=== PATIENT | male | born 1965 | race Caucasian/White ===

== ENCOUNTER 2016-08-31 10:55 | Inpatient (IN) | payer OTHER ==
[2016-08-31 11:43] LABS: % IMMATURE GRANULYOCYTES 0.3 % (0.0-1.1); ABSOLUTE IMMATURE GRANULOCYTES 0.03 10^3/uL (0.00-0.10); ADD DIFF? NO; ADD MORPH? NO; ADD SCAN? NO; ATYPICAL LYMPHOCYTE FLAG 0 (0-99); FRAGMENT RBC FLAG 0 (0-99); HEMATOCRIT 42.8 % (40.0-51.0); HEMOGLOBIN 14.8 g/dL (13.7-17.5); LEFT SHIFT FLG 0 (0-99); LIPEMIA HEMOLYSIS FLAG 90 (0-99); MEAN CELL HEMOGLOBIN 30.9 pg (27.9-34.1); MEAN CELL HEMOGLOBIN CONCENTR. 34.6 g/dL (32.4-36.7); MEAN CELL VOLUME 89.4 fL (81.5-99.8); MEAN PLATELET VOLUME 9.9 fL (8.7-11.7); PLATELET CLUMPS FLAG 0 (0-99); PLATELET COUNT 149 10^3/uL (150-400); RED BLOOD CELL COUNT 4.79 10^6/uL (4.40-6.38); RED CELL DISTRIBUTION WIDTH 13.5 % (11.5-15.2)
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
[2016-08-31 12:02] LABS: ANION GAP 10 mEq/L (8-16); CALCIUM 9.2 mg/dL (8.5-10.4); CARBON DIOXIDE 26 mEq/l (22-31); CHLORIDE 105 mEq/L (97-110); CREATININE 0.8 mg/dL (0.7-1.3); ETHANOL SERUM < 10 mg/dL (0-10); GLOMERULAR FILTRATION RATE > 60; GLUCOSE 86 mg/dL (70-100); POTASSIUM 3.6 mEq/L (3.5-5.2); SALICYLATE < 1.0 mg/dL (2.0-20.0); SODIUM 141 mEq/L (134-144)
[2016-08-31] MEDS ORDERED: LORazepam 1 MG TAB ONE (19:20)
[2016-08-31] MEDS ORDERED: LORazepam 1 MG TAB PO ONE (19:24)
[2016-08-31] MEDS ORDERED: ZIPRASIDONE HCL 40 MG CAP PO ONE (22:32)
[2016-09-01 00:10] LABS: INR 0.93 (0.83-1.16); PROTIME(PATIENT) 12.4 SEC (12.0-15.0)
[2016-09-01 00:11] LABS: APTT 23.6 SEC (23.0-38.0)
--- NOTE | 2016-09-01 00:12 | US ---
Ultrasound and Venous Duplex Doppler Study of Right Lower Extremity History: Right leg pain, patient is currently on blood thinners and has an IVC filter, history of DVT Comparison: none Technique: High frequency transducer was used for imaging and Doppler study of the veins of the lowe r extremity. Pulsed Doppler and color Doppler were utilized, along with various maneuvers to assess flow in the veins. Findings: The deep veins of the lower extremity are thrombosed between the upper thigh and the calf . The thrombus is echogenic suggesting that it is chronic. There is early recanalization of some of the thrombus. The common femoral vein and profunda femoral vein remain patent. There is thrombosis o f the greater saphenous vein. No Crawford's cyst is identified. A prominent right inguinal lymph node hi s present measuring 2.2 x 2.3 x 0.7 cm. Impression: No obvious evidence of acute DVT superimposed upon known chronic DVT. Results called to Dr. Templeton at 12:10 am.
[2016-09-01] MEDS ORDERED: ACETAMINOPHEN 325 MG TAB PO PRN (14:37)
[2016-09-01] MEDS ORDERED: MAG HYDROX/AL HYDROX/SIMETH 30 ML UDCUP PO PRN (14:37)
[2016-09-01] MEDS ORDERED: MAGNESIUM HYDROXIDE 30 ML UDCUP PO PRN (14:37)
[2016-09-01] MEDS ORDERED: CYANO/VITAMIN B12 100 MCG TAB PO PRN (14:45)
[2016-09-01] MEDS: PANTOPRAZOLE SODIUM 40 MG TAB PO SCH (15:04)
[2016-09-01] MEDS: ENOXAPARIN 150 MG/ML SYR SC SCH (15:04)
[2016-09-01] MEDS: LOSARTAN POTASSIUM 50 MG TAB PO SCH (15:05)
[2016-09-01] MEDS: LORazepam 0.5 MG TAB PO PRN (16:38)
[2016-09-01] MEDS: ZIPRASIDONE HCL 40 MG CAP PO SCH (17:09)
[2016-09-01] MEDS: diphenhydrAMINE 25 MG CAP PO PRN (20:29)
[2016-09-01] MEDS: ZIPRASIDONE HCL 20 MG CAP PO PRN (20:29)
--- NOTE | 2016-09-01 20:39 | SOAPPROG ---
[id number] OD on anti-HTN meds in context of recent move to [place] and having difficulty accessing resoures, as well as running out of resources. Plan: continue home meds add Geodon 20mg bid prn to scheduled dose, [id number] qhs to qpm with meal add Benadryl prn insomnia VS q shift, prn ativan; monitor for any bzd w/d sxs since reports self taper off xanax safety precautions 09/01/16 17:22 available records reviewed and patient interviewed today. Reports still with AH/SI but feels he can be safe in hospital would like to continue on his meds, agrees to additions as above noted. admission dictation to follow Objective: Vital Signs Temp Pulse Resp BP Pulse Ox 36.8 C 55 L 13 182/100 H 96 09/01/16 09:36 09/01/16 20:32 09/01/16 09:36 09/01/16 20:32 09/01/16 09:36 PT 12.4 SEC (12.0-15.0) 08/31/16 23:50 INR 0.93 (0.83-1.16) 08/31/16 23:50 - Pending Discharge Pending Discharge Within 24 Hours: No Pending Discharge Within 48 Hours: No ICD10 Worksheet Patient Problems: Problems Problem Status Diagnosed Severe major depression Acute
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
[2016-09-02] MEDS: LOSARTAN POTASSIUM 50 MG TAB PO SCH (08:17)
[2016-09-02] MEDS: VENLAFAXINE XR 150 MG CAP PO SCH (08:17)
[2016-09-02] MEDS: LORazepam 0.5 MG TAB PO PRN ×3 (08:18→20:24)
[2016-09-02] MEDS: PANTOPRAZOLE SODIUM 40 MG TAB PO SCH (08:18)
[2016-09-02] MEDS: ENOXAPARIN 150 MG/ML SYR SC SCH (08:19)
--- NOTE | 2016-09-02 12:44 | SOAPPROG ---
SOAP Progress Note Assessment/Plan: Assessment: 50yo with SZA d/o with extensive psychiatric hx admitted with SI/AH after travel to [place] and associated stressors, also with recent med changes Plan: continue meds Effexor, Geodon incr Benadryl avail at HS for sleep pt does not want AM Geodon b/c reports too sedating. does like it at HS. cont SP-1 hospitalist to f/u with BP voluntary 09/02/16 15:35 slept 9hr. pt reports this sleep was interrupted and not well, however, and maintains that historically he feels much better once sleeping well. Additional Geodon 20mg at HS helped some. Did use Ativan 1mg prn this AM. Does still report AH which he "ignores". Does report SI 05/06 and feels if he were not in hospital, he would OD. Feels he can be safe in hospital. BP continues elevated. No tremor. Was restarted on BP meds. Objective: Vital Signs Temp Pulse Resp BP Pulse Ox 37.0 C 87 16 160/88 H 95 09/02/16 06:00 09/02/16 09:11 09/02/16 09:11 09/02/16 09:11 09/02/16 09:11 PT 12.4 SEC (12.0-15.0) 08/31/16 23:50 INR 0.93 (0.83-1.16) 08/31/16 23:50 Selected Entries 09/01/16 09/01/16 09/01/16 15:05 20:28 20:32 Heart Rate 55 L Respiratory Rate O2 Sat (%) Temperature (C) Blood Pressure 187/114 H 182/100 H 182/100 H Mean Arterial 127 H Pressure (MAP) O2 Delivery Mode 09/02/16 09/02/16 06:00 09:11 Heart Rate 62 87 Respiratory 12 16 Rate O2 Sat (%) 95 95 Temperature (C) 37.0 C Blood Pressure 153/87 H 160/88 H Mean Arterial 112 H Pressure (MAP) O2 Delivery Room Air Mode - Time Spent With Patient Time Spent With Patient: 20 min - Pending Discharge Pending Discharge Within 24 Hours: No Pending Discharge Within 48 Hours: No ICD10 Worksheet Patient Problems: Problems Problem Status Diagnosed Severe major depression Acute
[2016-09-02] MEDS: ZIPRASIDONE HCL 40 MG CAP PO SCH (17:18)
[2016-09-02] MEDS: ZIPRASIDONE HCL 20 MG CAP PO PRN (20:25)
[2016-09-02] MEDS: diphenhydrAMINE 25 MG CAP PO PRN (20:25)
[2016-09-03] MEDS: VENLAFAXINE XR 150 MG CAP PO SCH (07:56)
[2016-09-03] MEDS: LOSARTAN POTASSIUM 50 MG TAB PO SCH (07:56)
[2016-09-03] MEDS: PANTOPRAZOLE SODIUM 40 MG TAB PO SCH (07:56)
[2016-09-03] MEDS: ENOXAPARIN 150 MG/ML SYR SC SCH (07:57)
[2016-09-03] MEDS: LORazepam 0.5 MG TAB PO PRN ×3 (08:41→20:50)
[2016-09-03] MEDS: NICOTINE POLACRILEX 2 MG GUM B PRN ×2 (10:55→14:49)
[2016-09-03] MEDS: ZIPRASIDONE HCL 40 MG CAP PO SCH ×2 (17:03→20:51)
[2016-09-03] MEDS: diphenhydrAMINE 25 MG CAP PO PRN (20:50)
[2016-09-04] MEDS: VENLAFAXINE XR 150 MG CAP PO SCH (08:17)
[2016-09-04] MEDS: LOSARTAN POTASSIUM 50 MG TAB PO SCH (08:17)
[2016-09-04] MEDS: ENOXAPARIN 150 MG/ML SYR SC SCH (08:18)
[2016-09-04] MEDS: PANTOPRAZOLE SODIUM 40 MG TAB PO SCH (08:18)
[2016-09-04] MEDS: LORazepam 0.5 MG TAB PO PRN ×3 (08:30→20:54)
--- NOTE | 2016-09-04 10:47 | SOAPPROG ---
SOAP Progress Note Assessment/Plan: Assessment: Pt is 50 y/o C male with a long hx of Schizoaffective D/O who came to the ER after leaving [place], [place] where he had been treated by Dr Whiteside for many years. He reports continued SI due to family problems especially regarding his sister and pt feels his sister wants him so she can get his inheritance. He receives SSI and SSDI since age 25 as well as medicare. Plan:con't Geodon at increased dose Increase Effexor by 37.5 mg QD for mood pt is vol. 09/04/16 10:44 Subjective: "Suicidal and depressed." Objective: Vital Signs Temp Pulse Resp BP Pulse Ox 36.6 C 59 L 16 183/93 H 94 09/04/16 05:42 09/04/16 05:42 09/04/16 05:42 09/04/16 05:42 09/04/16 05:42 PT 12.4 SEC (12.0-15.0) 08/31/16 23:50 INR 0.93 (0.83-1.16) 08/31/16 23:50 Pt is A+O x4 mood-"depressed and suicidal" affect-appr + SI but contracts for safety no HI decreased AH no VH thoughts-negative, but logical no formal delusions sleep/appetite-improving memory-intact I/J-fair - Time Spent With Patient Time Spent With Patient: 25' - Pending Discharge Pending Discharge Within 24 Hours: No Pending Discharge Within 48 Hours: No ICD10 Worksheet Patient Problems: Problems Problem Status Diagnosed Severe major depression Acute
[2016-09-04] MEDS: VENLAFAXINE XR 37.5 MG CAP PO SCH (10:55)
[2016-09-04] MEDS: NICOTINE POLACRILEX 2 MG GUM B PRN ×5 (11:19→18:57)
[2016-09-04] MEDS: ZIPRASIDONE HCL 40 MG CAP PO SCH ×2 (17:04→20:46)
[2016-09-04] MEDS: diphenhydrAMINE 25 MG CAP PO PRN (20:52)
[2016-09-05] MEDS: LOSARTAN POTASSIUM 50 MG TAB PO SCH (08:41)
[2016-09-05] MEDS: ENOXAPARIN 150 MG/ML SYR SC SCH (08:41)
[2016-09-05] MEDS: PANTOPRAZOLE SODIUM 40 MG TAB PO SCH (08:41)
[2016-09-05] MEDS: VENLAFAXINE XR 150 MG CAP PO SCH (08:42)
[2016-09-05] MEDS: VENLAFAXINE XR 37.5 MG CAP PO SCH (08:42)
[2016-09-05] MEDS: LORazepam 0.5 MG TAB PO PRN ×3 (08:44→20:54)
--- NOTE | 2016-09-05 10:37 | SOAPPROG ---
SOAP Progress Note Assessment/Plan: Assessment: Pt is 50 y/o C male with a long hx of Schizoaffective D/O who came to the ER after leaving [place], [place] where he had been treated by Dr Whiteside for many years. He reports continued SI due to family problems especially regarding his sister and pt feels his sister wants him so she can get his inheritance. He receives SSI and SSDI since age 25 as well as medicare. Plan:con't Geodon at increased dose Effexor increased by 37.5 mg QD for mood 09/04/16 pt is vol. will increase Clonidine to 0.2 mg as systolic running up to 180 will give Risperdal consta 50mg IM as did well on the past as when on it had no paranoia, had mood stabilization, no AH 09/05/16 10:28 Subjective: "Terrible-when I was on Consta I was kosher." Objective: Vital Signs Temp Pulse Resp BP Pulse Ox 36.9 C 86 16 185/99 H 96 09/05/16 06:00 09/05/16 06:00 09/05/16 06:00 09/05/16 08:41 09/05/16 06:00 PT 12.4 SEC (12.0-15.0) 08/31/16 23:50 INR 0.93 (0.83-1.16) 08/31/16 23:50 Pt is A+O x4 mood-"shitty" affect-appr SI 05/06 but contracts AH last night + paranoia thoughts-paranoid, but logical slept-poor conc-fair memory-intact speech-wnl I/J-good - Time Spent With Patient Time Spent With Patient: 25' - Pending Discharge Pending Discharge Within 24 Hours: No Pending Discharge Within 48 Hours: No ICD10 Worksheet Patient Problems: Problems Problem Status Diagnosed Severe major depression Acute
[2016-09-05] MEDS ORDERED: risperiDONE MICROSPHERES 50 MG/2 ML SYR IM ONE (10:40)
[2016-09-05] MEDS ORDERED: LOSARTAN POTASSIUM 50 MG TAB PO ONE (11:30)
[2016-09-05] MEDS: NICOTINE POLACRILEX 2 MG GUM B PRN ×6 (11:38→19:13)
[2016-09-05] MEDS: ZIPRASIDONE HCL 40 MG CAP PO SCH ×2 (17:19→20:54)
[2016-09-05] MEDS: diphenhydrAMINE 25 MG CAP PO PRN (20:53)
[2016-09-06] MEDS: LORazepam 0.5 MG TAB PO PRN (08:20)
[2016-09-06] MEDS: LOSARTAN POTASSIUM 50 MG TAB PO SCH (08:20)
[2016-09-06] MEDS: PANTOPRAZOLE SODIUM 40 MG TAB PO SCH (08:20)
[2016-09-06] MEDS: ENOXAPARIN 150 MG/ML SYR SC SCH (08:23)
[2016-09-06] MEDS: NICOTINE POLACRILEX 2 MG GUM B PRN ×6 (08:23→19:16)
[2016-09-06] MEDS ORDERED: ALPRAZolam 1 MG TAB PO ONE (11:06)
--- NOTE | 2016-09-06 11:11 | SOAPPROG ---
SOAP Progress Note Assessment/Plan: Assessment: Pt is 50 y/o C male with a long hx of Schizoaffective D/O who came to the ER after leaving [place], [place] where he had been treated by Dr Whiteside for many years. He reports continued SI due to family problems especially regarding his sister and pt feels his sister wants him so she can get his inheritance. He receives SSI and SSDI since age 25 as well as medicare. Plan:con't Geodon at increased dose but will begin tapering when Consta starts Effexor increased by 37.5 mg QD for mood 09/04/16 pt is vol. BP meds increased 09/05/16 as BP was high will give Risperdal consta 50mg IM as did well on the past as when on it had no paranoia, had mood stabilization, no AH will change Ativan to Xanax prn 09/06/16 11:08 Subjective: "I can't take these suicidal thoughts." Perseverates on his sister and money. Objective: Vital Signs Temp Pulse Resp BP Pulse Ox 36.4 C 68 16 185/96 H 97 09/06/16 08:33 09/06/16 08:33 09/06/16 08:33 09/06/16 08:33 09/06/16 08:33 PT 12.4 SEC (12.0-15.0) 08/31/16 23:50 INR 0.93 (0.83-1.16) 08/31/16 23:50 Pt is A+O x4 mood-anxious affect-appr 05/06 SI but contracts +AH no delusions but perseverates on sister and money sleep until 2am no HI NO VH thoughts-logical speech-wl no SOIFE I/J-fair-good - Time Spent With Patient Time Spent With Patient: 25' - Pending Discharge Pending Discharge Within 24 Hours: No Pending Discharge Within 48 Hours: No ICD10 Worksheet Patient Problems: Problems Problem Status Diagnosed Severe major depression Acute
[2016-09-06] MEDS ORDERED: risperiDONE MICROSPHERES 50 MG/2 ML SYR IM ONE (11:30)
[2016-09-06] MEDS: VENLAFAXINE HCL 75 MG TAB PO SCH ×2 (11:44→19:47)
[2016-09-06] MEDS: ALPRAZolam 1 MG TAB PO PRN ×2 (15:43→19:47)
[2016-09-06] MEDS: ZIPRASIDONE HCL 40 MG CAP PO SCH ×2 (17:18→19:47)
[2016-09-06] MEDS: diphenhydrAMINE 25 MG CAP PO PRN (20:39)
[2016-09-07] MEDS: ALPRAZolam 1 MG TAB PO PRN ×4 (08:39→20:51)
[2016-09-07] MEDS: LOSARTAN POTASSIUM 50 MG TAB PO SCH (08:39)
[2016-09-07] MEDS: PANTOPRAZOLE SODIUM 40 MG TAB PO SCH (08:40)
[2016-09-07] MEDS: VENLAFAXINE HCL 75 MG TAB PO SCH ×2 (08:40→20:48)
[2016-09-07] MEDS: NICOTINE POLACRILEX 2 MG GUM B PRN ×5 (08:41→17:25)
[2016-09-07] MEDS: ENOXAPARIN 150 MG/ML SYR SC SCH (08:43)
--- NOTE | 2016-09-07 11:35 | SOAPPROG ---
SOAP Progress Note Assessment/Plan: Assessment: Pt is 50 y/o C male with a long hx of Schizoaffective D/O who came to the ER after leaving [place], [place] where he had been treated by Dr Whiteside for many years. He reports continued SI due to family problems especially regarding his sister and pt feels his sister wants him so she can get his inheritance. He receives SSI and SSDI since age 25 as well as medicare. Plan:con't Geodon at increased dose but will begin tapering when more stable Effexor increased by 37.5 mg QD for mood 09/04/16 pt is vol. BP meds increased 09/05/16 as BP was high Risperdal consta 50mg IM given 09/06/16 as did well on the past as when on it had no paranoia, had mood stabilization, no AH will con't Xanax prn-pt feels it helps with anxiety better than Ativan 09/07/16 11:32 Subjective: "I'm not doing well-I'm looking at ways to do it." Objective: Vital Signs Temp Pulse Resp BP Pulse Ox 36.4 C 60 16 181/88 H 97 09/07/16 08:02 09/07/16 08:02 09/07/16 08:02 09/07/16 08:40 09/07/16 08:02 PT 12.4 SEC (12.0-15.0) 08/31/16 23:50 INR 0.93 (0.83-1.16) 08/31/16 23:50 Pt is A+O x4 mood-"terrible" affect-appr + SI 05/06 but contacts thoughts-paranoid, but logical some AH "Bible Verses" speech-wnl sleep-staff reports 10 hours but pt states he did not sleep appetite/energy level-wnl memory-intact no HI no SOFIE No VH I/J-fair - Time Spent With Patient Time Spent With Patient: 20' - Pending Discharge Pending Discharge Within 24 Hours: No Pending Discharge Within 48 Hours: No ICD10 Worksheet Patient Problems: Problems Problem Status Diagnosed Severe major depression Acute
[2016-09-07] MEDS: ZIPRASIDONE HCL 40 MG CAP PO SCH ×2 (17:22→20:48)
[2016-09-07] MEDS: diphenhydrAMINE 25 MG CAP PO PRN (20:54)
--- NOTE | 2016-09-08 00:56 | SOAPPROG ---
SOAP Progress Note Assessment/Plan: Assessment: 50yo with SZA d/o with extensive psychiatric hx admitted with SI/AH after travel to [place] and associated stressors, also with recent med changes Plan: continue meds Effexor, Geodon incr Benadryl avail at HS for sleep pt does not want AM Geodon b/c reports too sedating. does like it at HS. cont SP-1 hospitalist to f/u with BP voluntary 09/02/16 15:35 slept 9hr. pt reports this sleep was interrupted and not well, however, and maintains that historically he feels much better once sleeping well. Additional Geodon 20mg at HS helped some. Did use Ativan 1mg prn this AM. Does still report AH which he "ignores". Does report SI 9/10 and feels if he were not in hospital, he would OD. Feels he can be safe in hospital. BP continues elevated. No tremor. Was restarted on BP meds. LATE ENTRY: 09/03/16 15:00 pt slept 9.5 hr per nsg staff. staff report pt "decompensated" after reading suicide material provided to him on admission. On interview, reports + SI, intrusive, but able to contract that he can stay safe on unit. did report feeling like he was "sliding back", and again reports despite nsg report of 9.5hr sleep, that he didn't sleep. "I don't like the space I'm in in my head". +"some"AH, "a lot of racing thoughts and anxiety". denied med s/e. girlfriend visited today. Plan: cont Geodon 80mg qpm, incr hs to 40mg. doesn't want during day Cont Benadryl 50mg qhs prn, may take additional 25mg if still awake prn. cont prn lorazepam SP-1 precautions, vol Objective: Vital Signs Temp Pulse Resp BP Pulse Ox 36.4 C 55 L 20 162/87 H 98 09/07/16 16:00 09/07/16 16:00 09/07/16 16:00 09/07/16 16:00 09/07/16 16:00 PT 12.4 SEC (12.0-15.0) 08/31/16 23:50 INR 0.93 (0.83-1.16) 08/31/16 23:50 LATE ENTRY FOR 08/27/16: VS: BP 182/101 P62, POx99%, T 36.6 - Time Spent With Patient Time Spent With Patient: 15 min - Pending Discharge Pending Discharge Within 24 Hours: No Pending Discharge Within 48 Hours: No ICD10 Worksheet Patient Problems: Problems Problem Status Diagnosed Severe major depression Acute
[2016-09-08] MEDS: ALPRAZolam 1 MG TAB PO PRN ×4 (08:56→20:49)
[2016-09-08] MEDS: LOSARTAN POTASSIUM 50 MG TAB PO SCH (08:56)
[2016-09-08] MEDS: PANTOPRAZOLE SODIUM 40 MG TAB PO SCH (08:56)
[2016-09-08] MEDS: VENLAFAXINE HCL 75 MG TAB PO SCH ×2 (08:56→20:49)
[2016-09-08] MEDS: ENOXAPARIN 150 MG/ML SYR SC SCH (08:58)
[2016-09-08] MEDS: NICOTINE POLACRILEX 2 MG GUM B PRN ×5 (10:30→17:57)
--- NOTE | 2016-09-08 12:09 | SOAPPROG ---
SOAP Progress Note Assessment/Plan: Assessment: Pt is 50 y/o C male with a long hx of Schizoaffective D/O who came to the ER after leaving [place], [place] where he had been treated by Dr Whiteside for many years. He reports continued SI due to family problems especially regarding his sister and pt feels his sister wants him so she can get his inheritance. He receives SSI and SSDI since age 25 as well as medicare. Plan:con't Geodon at increased dose but will begin tapering when more stable Effexor increased by 37.5 mg QD for mood 09/04/16 pt is vol. BP meds increased 09/05/16 as BP was high Risperdal consta 50mg IM given 09/06/16 as did well on the past as when on it had no paranoia, had mood stabilization, no AH will con't Xanax prn-pt feels it helps with anxiety better than Ativan Pt has decided to return to [place], [place] on Sunday09/08/16 12:06 Subjective: Pt reports anxiety Objective: Vital Signs Temp Pulse Resp BP Pulse Ox 36.7 C 77 14 161/93 H 96 09/08/16 08:55 09/08/16 08:55 09/08/16 08:55 09/08/16 08:56 09/08/16 08:55 PT 12.4 SEC (12.0-15.0) 08/31/16 23:50 INR 0.93 (0.83-1.16) 08/31/16 23:50 Pt is A+O x4 mood-"not good" affect-appr +SI but contracts some AH no HI no VH thoughts-logical, some paranoia speech-rapid memory-intact conc-fair sleep-fair no SOFIE I/J-fair-good - Time Spent With Patient Time Spent With Patient: 30' - Pending Discharge Pending Discharge Within 24 Hours: No Pending Discharge Within 48 Hours: Yes Pending Discharge Date: 09/10/16 Pending Discharge Time: 11:00 ICD10 Worksheet Patient Problems: Problems Problem Status Diagnosed Severe major depression Acute
[2016-09-08] MEDS: ZIPRASIDONE HCL 40 MG CAP PO SCH ×2 (17:23→20:49)
[2016-09-08] MEDS: diphenhydrAMINE 25 MG CAP PO PRN (20:57)
[2016-09-09 08:35] VITALS: BP 145/83; PULSE 63; RESP 16; TEMP 97.8; O2SAT 99
[2016-09-09] MEDS: VENLAFAXINE HCL 75 MG TAB PO SCH (08:35)
[2016-09-09] MEDS: LOSARTAN POTASSIUM 50 MG TAB PO SCH (08:37)
[2016-09-09] MEDS: NICOTINE POLACRILEX 2 MG GUM B PRN (08:37)
[2016-09-09] MEDS: PANTOPRAZOLE SODIUM 40 MG TAB PO SCH (08:37)
[2016-09-09] MEDS: ALPRAZolam 1 MG TAB PO PRN (08:37)
[2016-09-09] MEDS: ENOXAPARIN 150 MG/ML SYR SC SCH (08:37)
--- NOTE | 2016-09-09 13:02 | BDS ---
[f rep st] BEHAVIORAL HEALTH DISCHARGE SUMMARY CHIEF COMPLAINT: "I was going to overdose on my clonidine and losartan," HISTORY OF PRESENT ILLNESS: The patient is a 50-year-old, , male, with a diagnosis of schizoaffective disorder, who was being treated at [facility] in [place], who recently traveled to [place] from [place] with his girlfriend of 1 year, planning to relocate. The patient reports this was a planned relocation, and he spoke with [facility] to established with them and also coming here with 3 months of medication in order to have time to establish treatment here. However, patient has out-of- [place] Medicare, and [facility] did not tell him he would have to pay full rate. 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 They had some financial stressors along the way, and his girlfriend sold her car in [place], and they came to [place] by train. Arrangements were made for them to go to a skilled nursing, but the patient reported feeling suicidal and came to the ED. Patient has a long psych history with previous suicide attempts and 1 hospitalization for 1-1/2 years. He was stable on Risperdal Consta until he was taken off it 1-1/2 months ago at the request of his vascular surgery surgeon due to his clotting disorder. However all antipsychotics increased clotting and since the pt has been off his Consta injections he has had increased SI, paranoia and AH; while on the Consta he was stable and had none of these symptoms. DIAGNOSIS ON ADMISSION: [place] I: Schizoaffective disorder, depressed type, acute exacerbation. Posttraumatic stress disorder by history. Cannabis Use Disorder-severe II-def [place] III: Clotting disorder. Hypertension. History of traumatic brain injury. [place] IV: Homelessness. Unemployed on disability. Financial stressors. Limited social support. Conflict with sister over trust fund. [place] V: On admission was 20. HOSPITAL COURSE: The patient was started back on his outpatient medications, which were Effexor 300 mg daily and Geodon 40 mg b.i.d., which was increased by Dr. Snell to 80 mg daily and 40 mg q.h.s. Effexor was increased by 37.[address] Shaw. for depression. Patient reported having suicidal ideation throughout his hospitalization due to problems with sister over money and feeling like his sister wanted him so she could get his inheritance. He then found out how expensive it was live in [place], and then found out he would have to pay full rate at [facility] as he has [place] Medicare and because he has insurance, so they will not accept him on a sliding scale. The patient finally realized it was best for him to return to his doctor, who he trusts in [place], Dr. Whiteside, ( who is known by this MD who used to work in [place] at [facility]). Patient has a very good support system in [place]. They have group homes he can live in whereas here he has no housing options. He has a very supportive mental health team, which would not be available in this area. He worked things out with his sister and no longer had active SI. Ativan was changed to Xanax as pt was severely anxious and pt reported Xanax had worked well in the past, but he had recently tapered off it as P told him they would not Rx it. The patient signed in voluntarily and when his M1 , it appeared to be a suicidal ideation that was mostly related to problems with his sister about money, his leaving his support system in [place] and having problems coming to [place] and problems with his girlfriend who has Bipolar Disorder. Many of these problems resolved as the sister agreed to give him money to fly back to [place] and get him set up in with housing there. Patient reported having occasional auditory hallucinations, which were mostly noises but did not have any delusions throughout his stay. He complained of poor sleep although staff said he was sleeping well. He participated in some groups and was compliant with all medications. In the future he would like to get off Lovenox as he has to give injection daily, but this will be left up to his primary care physician back in [place]. There were no e-meds given and seclusion or restraints were not required. DISCHARGE MEDICATIONS: Lovenox 150 mg subcu daily, clonidine 0.1 mg b.i.d., Xanax 1 mg q.4 hours p.r.n., continue vitamin D 100 mcg daily, Cozaar 100 mg daily, Protonix 40 mg daily, Effexor 337.5 mg daily, Geodon 40 mg q.h.s. and 80 mg daily, Benadryl 25-50 mg q.h.s. p.r.n. Risperdal consta 50 mg IM Q 2 weeks due in one week. The Xanax is to be temporary and the Geodon with be tapered by pt's outpt tx team in [place]. Patient was having severe anxiety on the unit and felt that the Ativan was not helping, so it was changed to Xanax which he had done well on in the past. MENTAL STATUS: On discharge patient is alert and oriented x4. Mood is neutral. Affect is appropriate. Denies suicidal or homicidal ideation. No plan or intent. No current auditory or visual hallucinations. No homicidal ideation. Thoughts logical and coherent. Speech normal rate, rhythm. Memory and concentration are intact. Sleep, appetite, and energy level are normal. No loosening of associations. Insight and judgment are good. DISCHARGE DIAGNOSES: [place] I: Schizoaffective disorder, depressed type, acute exacerbation. Posttraumatic stress disorder by history. [place] III: Clotting disorder. Hypertension. History of traumatic brain injury. [place] IV: Homelessness. Unemployed on disability. Financial stressors. Limited social support. Conflict with sister over trust fund/recent move with with no place to live and no psych appointments. [place] V: GAF on discharge is 55. DISCHARGE PLAN: Patient will be discharged voluntarily. He and his girlfriend will be flying back to [place] on Sunday. He will be going by [employer] to [place] to flower picker money his sister sent and will be staying [facility] He will return back to [facility] for his psych treatment where he has a treatment team already set up. 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 The patient is medically and psychiatrically stable for discharge. Medication plan: The outpatient team at [facility] in [place] should per down Geodon and D/C this med as the pharmacist here states Effexor (which pt has been on for many years) should not be given along with Geodon. His Risperdal Consta should be continued at 50mg IM Q 2 weeks as he was very stable on this med and and there is no greater clotting risk with this med than with any other antipsychotic med. /[id number]/MODL MTDD
== END 2016-09-09 11:45 | disposition home or self-care (01) | DRG 885 ==
LOC: BBEH 09-01 08:55
PROVIDERS: ADMIT Psychiatry & Neurology Behavioral Neurology & Neuropsychiatry; ATTEND Psychiatry & Neurology Behavioral Neurology & Neuropsychiatry
DX: F25.9 Schizoaffective disorder, unspecified (principal); F43.10 Post-traumatic stress disorder, unspecified; F12.20 Cannabis dependence, uncomplicated; Z59.0 Homelessness; Z87.820 Personal history of traumatic brain injury
CPT/HCPCS: 80305; G0480; J2794

== ENCOUNTER 2016-09-10 15:47 | Emergency (ER) | payer OTHER ==
--- NOTE | 2016-09-10 15:58 | CPEKG ---
Heart Rate: 103 RR Interval: 583 P-R Interval: 152 QRSD Interval: 94 QT Interval: 340 QTC Interval: 445 P [place]: 56 QRS [place]: 48 T Wave [place]: 13 EKG Severity - ABNORMAL ECG - EKG Impression: SINUS TACHYCARDIA EKG Impression: LEFT ATRIAL ABNORMALITY EKG Impression: BORDERLINE INFERIOR Q WAVES Electronically Signed By: Myrna Bell 10-Sep-2016 19:37:47
--- NOTE | 2016-09-10 15:58 | EDPHY ---
H & P HPI/ROS: CHIEF COMPLAINT: "I convulse. I haven't slept in 3 days." HISTORY OF PRESENT ILLNESS: The patient is a homeless 50 y/o male, with a history of depression and recent psychiatric admission, arriving via EMS with his girlfriend complaining of "convulsions." He was admitted on 09/01/16 for suicidality and discharged yesterday. He spent last night in the homeless snf. Today he says he was in a restaurant and "couldn't stop twitching." Per his girlfriend he then walked outside and she had to help him to the ground where he continued twitching. He initially tells me he remembered the event and later denied this. He denies any pain, incontinence, or tongue bite. He does complain of fatigue in addition to the shaking. He drank two beers today. He has been eating and drinking normally. He says he lost his Xanax script at discharge yesterday but later says they did not give him the script. He states that he is taking his medications as prescribed. During assessment he says he is currently having a seizure as he's twitching in front of me. He answers my questions appropriately through this episode. His girlfriend says this is similar to his previous seizure, though not as bad. REVIEW OF SYSTEMS: A ten point review of systems was performed and is negative with the exception of the items mentioned in the HPI. Source: Patient, EMS Exam Limitations: No limitations - Medical/Surgical History PMH: PMH includes: 1. Schizoaffective disorder 2. "clotting disorder" 3. Multiple psychiatric hospitalizations with involuntary certification in the past 4. Anxiety 5. Hypertension 6. Chronic pain 7. TBI? on Geodon, Lovenox, Clonidine, Effexor, Xanax, Risperdal Reviewed prior medical records including psychiatric admission on 09/01/16 Hx Asthma: No Hx Chronic Respiratory Disease: No Hx Diabetes: No Hx Cardiac Disease: No Hx Renal Disease: No Hx Cirrhosis: No Hx Alcoholism: No Hx HIV/AIDS: No Hx Splenectomy or Spleen Trauma: No Other PMH: pmh: depression/anxiety, cutting, HTN, protein S deficiency clotting d/o,. psh: lipoma removal, umbilical hernia repair, IVC filters placed 01/2016 - Social History Smoking Status: Current every day smoker Alcohol Use: Occasionally Additional Social History: Homeless. Girlfriend at bedside. Says he's leaving for [place] later this week , but has not booked the flight yet. They are currently staying in the snf. Marijuana use. Alcohol use (social per his description). He has a history of alcohol abuse, but denies drinking heavily now. - Physical Exam Exam: General Appearance: Alert. Vital signs reviewed. Heart rate 115. Blood pressure 157/99. Eyes: Pupils equal and round, no conjunctival injection, no discharge. Anicteric. ENT, Mouth: Mucous membranes are dry, no oropharyngeal erythema or edema. Neck: No lymphadenopathy, supple. Trachea midline. Respiratory: Lungs are clear to auscultation; no wheezes, rales, or rhonchi. Cardiovascular: Regular rate and rhythm; no murmur, rub, or gallop. Gastrointestinal: Abdomen is soft and nontender, no masses or organomegaly, bowel sounds normal. Skin: Warm and dry, no rashes on exposed skin, normal color. Back: Nontender to palpation over the thoracolumbar spine. No CVAT. Extremities: No lower extremity edema, no calf tenderness or swelling. Neurological: Alert and oriented. Moving all four extremities easily and equally. Cranial nerves II through XII are examined and are intact (visual acuity not tested). Strength is 5 over 5 bilaterally with testing of all major motor groups. Sensation is intact to light touch over all 4 extremities. Deep tendon reflexes are 2+ in the biceps and knees bilaterally. Gait is normal. Psychiatric: Normal affect. Constitutional: Initial Vital Signs Temperature (C) 36.7 C 09/10/16 15:56 Heart Rate 115 H 09/10/16 15:56 Respiratory Rate 20 09/10/16 15:56 Blood Pressure 157/99 H 09/10/16 15:56 O2 Sat (%) 92 09/10/16 15:56 O2 Delivery Mode Room Air Allergies/Adverse Reactions: atenolol Allergy (Verified 09/10/16 15:54) doxycycline Allergy (Verified 09/10/16 15:54) lamotrigine [From Lamictal] Allergy (Verified 09/10/16 15:54) latex Allergy (Verified 09/10/16 15:54) Penicillins Allergy (Verified 09/10/16 15:54) Home Medications: Medication Instructions Recorded Enoxaparin [Lovenox 150mg (*)] 150 mg SC DAILY 08/31/16 clonIDINE [Catapres (*)] 0.1 mg PO BID 08/31/16 ALPRAZolam [Xanax 1 MG (*)] 1 mg PO Q4 PRN #20 tab 09/09/16 Cyanocobalamin [Vitamin B12 (*)] 100 mcg PO DAILY PRN #0 tab 09/09/16 Enoxaparin [Lovenox 150mg (*)] 150 mg SC DAILY #30 syr 09/09/16 Losartan Potassium [Cozaar 50 mg 100 mg PO DAILY #60 tab 09/09/16 (*)] Pantoprazole Sodium [Protonix 40mg 40 mg PO DAILY #30 tab 09/09/16 (*)] Venlafaxine HCl [Venlafaxine 75MG 150 mg PO HS #30 tab 09/09/16 (*)] Venlafaxine HCl [Venlafaxine 75MG 187.5 mg PO DAILY #30 tab 09/09/16 (*)] Ziprasidone HCl [Geodon 40MG (*)] 40 mg PO HS #30 cap 09/09/16 Ziprasidone HCl [Geodon 40MG (*)] 80 mg PO DAILY@1800 #30 cap 09/09/16 clonIDINE [Catapres (*)] 0.1 mg PO BID #60 tab 09/09/16 diphenhydrAMINE [Benadryl 25 MG 25 - 50 mg PO HS PRN #45 cap 09/09/16 (*)] Medical Decision Making - Diagnostics EKG Interpretation: The 12 lead EKG was interpreted by myself. Sinus tachycardiac rate 103, left atrial abnormality, borderline inferior Q waves. See hard copy and/or "tracemaster" electronic copy for interpretation. ED Course/Re-evaluation: No evidence of seizure or postictal period. PO Xanax administered for shaking/anxiety. Patient placed on environmental monitoring technician. 1655: Patient told his RN he wanted to leave. On my reassessment he says he changed his mind. His HR is 98. 1805: Reevaluated patient. Breath sounds normal. Abdomen benign. He has a plan to go to the snf tonight. Return precautions given. He is comfortable with plan for follow up. He was initially tachycardic but has had 2 L of normal saline IV and has a heart rate in the 90s at discharge. He has been hypertensive throughout his stay. He has a history of hypertension and tells me that he is compliant with his and I have hypertension medications. He denies any recent heavy alcohol use. I do not think that the episodes that I witnessed were seizure activity. Differential Diagnosis: I considered a differential diagnosis that includes but is not limited to seizure, alcohol withdrawal, dehydration, and essential tremor. - Data Points Medications Given: Discontinued Medications Alprazolam (Xanax) 1 mg PO EDNOW ONE Stop: 09/10/16 16:42 Last Admin: 09/10/16 16:42 Dose: 1 mg Sodium Chloride (Ns) 1,000 mls @ 0 mls/hr IV EDNOW ONE PRN Reason: Wide Open Stop: 09/10/16 17:14 Last Admin: 09/10/16 17:14 Dose: 1,000 mls Sodium Chloride (Ns) 1,000 mls @ 0 mls/hr IV ONCE ONE PRN Reason: Wide Open Stop: 09/10/16 17:22 Last Admin: 09/10/16 17:22 Dose: 1,000 mls Departure - Departure Disposition: Home, Routine, Self-Care Clinical Impression: Shakiness, Hypertension Condition: Good Instructions: Hypertension (ED) Additional Instructions: Rest. Increase fluid intake. Follow up at [facility] this week for symptoms not improved. Referrals: [facility] [Outside] - As per Instructions Report Scribed for: Myrna Bell Report Scribed by: Yani Jovel Date of Report: 09/10/16 Time of Report: 17:36 Physician Review and Approval Statement: 09/10/16 15:58 Portions of this note were transcribed by the medical device engineer. I, Dr. Myrna Bell, personally performed the history, physical exam, and medical decision- making; and confirmed the accuracy of the information in the transcribed note.
[2016-09-10] MEDS ORDERED: ALPRAZolam 1 MG TAB PO ONE (16:41)
[2016-09-10] MEDS ORDERED: NS 1,000 ML IV ONE ×2 (17:13→17:21)
[2016-09-10 18:14] VITALS: RESP 22
[2016-09-10 18:52] VITALS: BP 175/110; PULSE 100; TEMP 99; O2SAT 94
== END 2016-09-10 18:52 | disposition home or self-care (01) ==
LOC: EDUNIT#
DX: R25.1 Tremor, unspecified (principal); I10 Essential (primary) hypertension; F17.200 Nicotine dependence, unspecified, uncomplicated; Z91.040 Latex allergy status

== ENCOUNTER 2016-09-10 22:00 | Emergency (ER) | payer OTHER ==
--- NOTE | 2016-09-10 22:17 | EDPHY ---
H & P Stated Complaint: c/o HTN and reccurent episodes of tremors with vision/hearing impairment HPI/ROS: HPI CHIEF COMPLAINT: I think I am having a seizure HISTORY OF PRESENT ILLNESS: This patient 50-year-old male significant past medical history for depression, schizophrenia, hypertension traumatic brain injury recently discharged from inpatient psychiatric care, was also seen here in the emergency room earlier for complaints of muscle twitching possible alcohol withdrawal. Patient presents back to the emergency room stating that he is having seizures. He describes episodes of hold body muscle spasms that he can feel come on and is conscious during the episodes. He denies pain anywhere specifically denies headache, chest pain, shortness of breath. He tells me that he has been going on all day every 10 minutes for the entire day. Currently at this time he has no complaints. Past Medical History: Hypertension, TBI, schizophrenia, depression, alcohol abuse, DVTs on Lovenox Social History: Homeless, alcohol use, endorses marijuana and tobacco, denies other illicit drugs, is from [facility] Family History: Noncontributory ROS REVIEW OF SYSTEMS: A comprehensive 10 point review of systems is otherwise negative aside from elements mentioned in the history of present illness. Exam Constitutional appears well nontoxic, triage nursing summary reviewed, vital signs reviewed, awake/alert. Eyes normal conjunctivae and sclera, EOMI, PERRLA. HENT normal inspection, atraumatic, moist mucus membranes, no epistaxis, neck supple/ no meningismus, no raccoon eyes. Respiratory clear to auscultation bilaterally, normal breath sounds, no respiratory distress, no wheezing. Cardiovascular rate normal, regular rhythm, no murmur, no edema, distal pulses normal. Gastrointestinal soft, non-tender, no rebound, no guarding, normal bowel sounds, no distension, no pulsatile mass. Genitourinary no CVA tenderness. Musculoskeletal no midline vertebral tenderness, full range of motion, no calf swelling, no tenderness of extremities, no meningismus, good pulses, neurovascularly intact. Skin pink, warm, & dry, no rash, skin atraumatic. Neurologic awake, alert and oriented x 3, AAOx3, moves all 4 extremities equally, motor intact, sensory intact, CN II-XII intact, normal cerebellar, normal vision, normal speech. Psychiatric normal mood/affect. Heme/Lymph/Immune no lymphadenopathy. Differential Diagnosis: Includes but is not limited to in a particular order seizures, electrolyte abnormality, dehydration, intracranial bleed which I doubt , alcohol withdrawal Medical Decision Making: this patient had an IV established will receive IV fluids, placed on full property assessment monitor he will have a CT scan of his head to rule out pathology for seizures, we will check electrolytes including a bicarb will also check a CK due to description of diffuse muscle spasms. His description of these events are not consistent with seizures he does not have a postictal state, and is conscious during the entire event. Tells me he is having these every 10 minutes we will monitor here for these events. Re-evaluation: 2329: patient is feeling anxious he was given 0.5 mg IV Ativan. Also he was given his clonidine dose 0.1 mg for hypertension. At this time is resting comfortably there has been no witnessed seizure activity here during his ER visit. His blood work is reassuring his CT scan of his head is pending at this time. CT scan of the head without IV contrast The results of the study are Negative for Acute Bleed/tumor or nidus of sz. The study was read by Dr. Mcdowell I viewed the images myself on the PACS system. 0000; patient now tells me that he normally takes Xanax up to 3 times per day however has been out of it for 2 days. Does feel much better after IV Ativan 0.5 mg. Most likely has muscle twitching is possibly from Xanax withdrawal. He has been monitored here for over 2 hours been no evidence of seizure activities blood work and CT are reassuring. It is noted that he was hypertensive I did give him his dose of clonidine 0.1 mg his blood pressure went up to 200 and is now back down to 170s. He has no complaints at this time resting comfortably. 1205AM: Patient feeling much better after IV Ativan he is agreeable for discharge. Given that he stopped his Xanax 2 days ago he tells me takes 1 mg of Xanax every 4 hours most likely feeling shaking injury due to Xanax withdrawal. I will give him a prescription for limited supply of Ativan understands he needs to follow up with his doctor to get back on his Xanax if desired. I did give him strict return precautions he understands return to the emergency room if develops seizure like activity does not feel well he has vomiting or shaking he understands his at bedside also understands this. At this time he has been monitored here for multiple hours his blood pressure is improving he has not had any seizure activity has been no evidence of severe benzo withdrawal. He has agreeable on d/c. Source: Patient - Personal History Current Tetanus/Diphtheria Vaccine: Yes Current Tetanus Diphtheria and Acellular Pertussis (TDAP): Yes - Medical/Surgical History Hx Asthma: No Hx Chronic Respiratory Disease: No Hx Diabetes: No Hx Cardiac Disease: No Hx Renal Disease: No Hx Cirrhosis: No Hx Alcoholism: No Hx HIV/AIDS: No Hx Splenectomy or Spleen Trauma: No Other PMH: pmh: depression/anxiety, cutting, HTN, protein S deficiency clotting d/o,. psh: lipoma removal, umbilical hernia repair, IVC filters placed 01/2016 - Social History Smoking Status: Current every day smoker Constitutional: Initial Vital Signs Temperature (C) 36.9 C 09/10/16 22:14 Heart Rate 78 09/10/16 22:14 Respiratory Rate 18 09/10/16 22:14 Blood Pressure 157/108 H 09/10/16 22:14 O2 Sat (%) 96 09/10/16 22:14 O2 Delivery Mode Room Air Allergies/Adverse Reactions: atenolol Allergy (Verified 09/10/16 15:54) doxycycline Allergy (Verified 09/10/16 15:54) lamotrigine [From Lamictal] Allergy (Verified 09/10/16 15:54) latex Allergy (Verified 09/10/16 15:54) Penicillins Allergy (Verified 09/10/16 15:54) Home Medications: Medication Instructions Recorded Enoxaparin [Lovenox 150mg (*)] 150 mg SC DAILY 08/31/16 clonIDINE [Catapres (*)] 0.1 mg PO BID 08/31/16 ALPRAZolam [Xanax 1 MG (*)] 1 mg PO Q4 PRN #20 tab 09/09/16 Cyanocobalamin [Vitamin B12 (*)] 100 mcg PO DAILY PRN #0 tab 09/09/16 Enoxaparin [Lovenox 150mg (*)] 150 mg SC DAILY #30 syr 09/09/16 Losartan Potassium [Cozaar 50 mg 100 mg PO DAILY #60 tab 09/09/16 (*)] Pantoprazole Sodium [Protonix 40mg 40 mg PO DAILY #30 tab 09/09/16 (*)] Venlafaxine HCl [Venlafaxine 75MG 150 mg PO HS #30 tab 09/09/16 (*)] Venlafaxine HCl [Venlafaxine 75MG 187.5 mg PO DAILY #30 tab 09/09/16 (*)] Ziprasidone HCl [Geodon 40MG (*)] 40 mg PO HS #30 cap 09/09/16 Ziprasidone HCl [Geodon 40MG (*)] 80 mg PO DAILY@1800 #30 cap 09/09/16 clonIDINE [Catapres (*)] 0.1 mg PO BID #60 tab 09/09/16 diphenhydrAMINE [Benadryl 25 MG 25 - 50 mg PO HS PRN #45 cap 09/09/16 (*)] Lorazepam [Ativan] 1 mg PO BID #7 tablet 09/11/16 Medical Decision Making - Data Points Laboratory Results: Laboratory Results 09/10/16 22:40 09/10/16 22:40 09/10/16 09/10/16 23:55 22:40 WBC 12.24 H 10^3/uL (3.80-9.50) RBC 5.02 10^6/uL (4.40-6.38) Hgb 15.3 g/dL (13.7-17.5) Hct 45.1 % (40.0-51.0) MCV 89.8 fL (81.5-99.8) MCH 30.5 pg (27.9-34.1) MCHC 33.9 g/dL (32.4-36.7) RDW 13.4 % (11.5-15.2) Plt Count 294 10^3/uL (150-400) MPV 9.5 fL (8.7-11.7) Neut % (Auto) 77.2 H % (39.3-74.2) Lymph % (Auto) 14.0 L % (15.0-45.0) [place] % (Auto) 7.8 % (4.5-13.0) Eos % (Auto) 0.4 L % (0.6-7.6) Baso % (Auto) 0.3 % (0.3-1.7) Nucleat RBC Rel Count 0.0 % (0.0-0.2) Absolute Neuts (auto) 9.45 H 10^3/uL (1.70-6.50) Absolute Lymphs (auto) 1.71 10^3/uL (1.00-3.00) Absolute Monos (auto) 0.95 H 10^3/uL (0.30-0.80) Absolute Eos (auto) 0.05 10^3/uL (0.03-0.40) Absolute Basos (auto) 0.04 10^3/uL (0.02-0.10) Absolute Nucleated RBC 0.00 10^3/uL (0-0.01) Immature Gran % 0.3 % (0.0-1.1) Immature Gran # 0.04 10^3/uL (0.00-0.10) PT 13.2 SEC (12.0-15.0) INR 1.01 (0.83-1.16) Sodium 139 mEq/L (134-144) Potassium 4.2 mEq/L (3.5-5.2) Chloride 106 mEq/L (97-110) Carbon Dioxide 22 mEq/l (22-31) Anion Gap 11 mEq/L (8-16) BUN 13 mg/dL (7-23) Creatinine 1.0 mg/dL (0.7-1.3) Estimated GFR > 60 Glucose 94 mg/dL (70-100) Calcium 9.1 mg/dL (8.5-10.4) Creatine Kinase 68 IU/L (0-224) Urine Opiates Screen Pending Urine Barbiturates Pending Ur Phencyclidine Scrn Pending Ur Amphetamine Screen Pending U Benzodiazepines Scrn Pending Urine Cocaine Screen Pending U Marijuana (THC) Screen Pending Ethyl Alcohol < 10 mg/dL (0-10) Medications Given: Discontinued Medications Clonidine (Catapres) 0.1 mg PO EDNOW ONE Stop: 09/10/16 23:06 Last Admin: 09/10/16 23:11 Dose: 0.1 mg Sodium Chloride (Ns) 1,000 mls @ 0 mls/hr IV ONCE ONE PRN Reason: Wide Open Stop: 09/10/16 22:25 Last Admin: 09/10/16 22:51 Dose: 1,000 mls Lorazepam (Ativan Injection) 0.5 mg IVP EDNOW ONE Stop: 09/10/16 23:20 Last Admin: 09/10/16 23:27 Dose: 0.5 mg Departure - Departure Disposition: Home, Routine, Self-Care Clinical Impression: Benzodiazepine withdrawal Qualifiers: Complication of substance-induced condition: uncomplicated Qualifier Code: ( F13.230) Sedative, hypnotic or anxiolytic dependence with withdrawal, uncomplicated Condition: Good Instructions: Lorazepam (By mouth) Additional Instructions: 1. Stay well-hydrated drink lots of fluids. 2. return to the emergency room if he develops any worsening symptoms includes jitteriness, lightheadedness, vomiting, seizure activity. 3. Take her Ativan as prescribed. He need to follow up with her primary care doctor about getting back on your Xanax if you desire. Referrals: OUT OF STATE,. [Primary Care Provider] - As per Instructions Prescriptions: Lorazepam [Ativan] 1 mg PO BID #7 tablet
[2016-09-10] MEDS ORDERED: NS 1,000 ML IV ONE (22:24)
[2016-09-10 22:50] LABS: % IMMATURE GRANULYOCYTES 0.3 % (0.0-1.1); ABSOLUTE IMMATURE GRANULOCYTES 0.04 10^3/uL (0.00-0.10); ADD DIFF? NO; ADD MORPH? NO; ADD SCAN? NO; ATYPICAL LYMPHOCYTE FLAG 0 (0-99); FRAGMENT RBC FLAG 0 (0-99); HEMATOCRIT 45.1 % (40.0-51.0); HEMOGLOBIN 15.3 g/dL (13.7-17.5); LEFT SHIFT FLG 0 (0-99); LIPEMIA HEMOLYSIS FLAG 90 (0-99); MEAN CELL HEMOGLOBIN 30.5 pg (27.9-34.1); MEAN CELL HEMOGLOBIN CONCENTR. 33.9 g/dL (32.4-36.7); MEAN CELL VOLUME 89.8 fL (81.5-99.8); MEAN PLATELET VOLUME 9.5 fL (8.7-11.7); PLATELET CLUMPS FLAG 0 (0-99); PLATELET COUNT 294 10^3/uL (150-400); RED BLOOD CELL COUNT 5.02 10^6/uL (4.40-6.38); RED CELL DISTRIBUTION WIDTH 13.4 % (11.5-15.2)
[2016-09-10 22:59] LABS: INR 1.01 (0.83-1.16); PROTIME(PATIENT) 13.2 SEC (12.0-15.0)
[2016-09-10 23:02] LABS: ANION GAP 11 mEq/L (8-16); CALCIUM 9.1 mg/dL (8.5-10.4); CARBON DIOXIDE 22 mEq/l (22-31); CHLORIDE 106 mEq/L (97-110); ETHANOL SERUM < 10 mg/dL (0-10); GLOMERULAR FILTRATION RATE > 60; GLUCOSE 94 mg/dL (70-100); POTASSIUM 4.2 mEq/L (3.5-5.2); SODIUM 139 mEq/L (134-144)
[2016-09-10] MEDS ORDERED: LORazepam 2 MG/ML INJ IVP ONE (23:19)
--- NOTE | 2016-09-10 23:35 | CT ---
CT Scan of the Head (Without Contrast) Clinical Indications: Evaluate possible seizure in a 50-year-old male. Technique: Axial CT images were acquired from foramen magnum through vertex, without intravenous con trast. Soft tissue and bone windows were reviewed on the computer workstation. Images were reconstr ucted down to 1.25 mm images. Dose reduction techniques were utilized. No previous studies are available for comparison. Findings: No mass lesions are seen, and there is no evidence of intracranial hemorrhage or acute inf arct. The ventricles and subarachnoid spaces are normal in size for this age group. No parenchymal a bnormality is seen. A seizure focus is not identified. Bone windows reveal no sign of fracture. The visualized paranasal sinuses and mastoid air cells are free of fluid. Impression: Normal CT of the head. Specifically, a seizure focus is not identified. A preliminary report was called to Dr. Issa Templeton at 2330 hours in the Emergency Department.
[2016-09-11] MEDS ORDERED: LORazepam 1 MG TAB PO ONE (00:27)
[2016-09-11 00:46] VITALS: BP 168/103; PULSE 81; RESP 15; TEMP 97.9; O2SAT 94
== END 2016-09-11 00:44 | disposition home or self-care (01) ==
LOC: EDUNIT#
DX: F13.230 Sedative, hypnotic or anxiolytic dependence with withdrawal, uncomplicated (principal); I10 Essential (primary) hypertension; F17.200 Nicotine dependence, unspecified, uncomplicated; Z91.040 Latex allergy status
CPT/HCPCS: 80305; 96374; G0480

== ENCOUNTER 2016-09-13 10:49 | Inpatient (IN) | payer OTHER ==
--- NOTE | 2016-09-13 10:56 | CPEKG ---
Heart Rate: 73 RR Interval: 822 P-R Interval: 160 QRSD Interval: 92 QT Interval: 404 QTC Interval: 446 P [place]: 54 QRS [place]: 17 T Wave [place]: 22 EKG Severity - BORDERLINE ECG - EKG Impression: SINUS RHYTHM EKG Impression: PROBABLE LEFT ATRIAL ABNORMALITY Electronically Signed By: Alfonso Gillis 13-Sep-2016 11:04:32
--- NOTE | 2016-09-13 11:04 | EDPHY ---
H & P Time Seen by Provider: 09/13/16 10:51 HPI/ROS: CHIEF COMPLAINT: Overdose HISTORY OF PRESENT ILLNESS: Patient is a 50-year-old man who reports history of schizoaffective disorder who overdosed on Geodon this morning around 9:00 a.m.. He states that he called his friends and family to tell them that he loved them and then took 120 tablets of 40 mg Geodon. At some point thereafter he was speaking with his counselor Gretchen who called police. He states that this is his 9th suicide attempt. He denies any co-ingestants. He denies recent drug or alcohol ingestion. he has not taken his antipsychotic meds recently because they were stolen. He states that he was discharged from [address] [place] [address] on Sunday. He denies recent illness or injury. He does take Lovenox injections Daily for history of protein S deficiency and multiple DVTs. REVIEW OF SYSTEMS: Constitutional: denies: chills, fever, recent illness, recent injury EENTM: denies: blurred vision, double vision, nose congestion Respiratory: denies: cough, shortness of breath Cardiac: denies: chest pain, irregular heart rate, lightheadedness, palpitations Gastrointestinal/Abdominal: denies: abdominal pain, diarrhea, nausea, vomiting, blood streaked stools Genitourinary: denies: dysuria, frequency, hematuria, pain Musculoskeletal: denies: joint pain, muscle pain Skin: denies: lesions, rash, jaundice, bruising Neurological: denies: headache, numbness, paresthesia, tingling, dizziness, weakness Hematologic/Lymphatic: denies: blood clots, easy bleeding, easy bruising Immunologic/allergic: denies: HIV/AIDS, transplant EXAM: GENERAL: Mildly lethargic, obese . HEAD: Atraumatic, normocephalic. EYES: Pupils equal round and reactive to light, extraocular movements intact, sclera anicteric, conjunctiva are normal. ENT: TMs normal, nares patent, oropharynx clear without exudates. Moist mucous membranes. NECK: Normal range of motion, supple without lymphadenopathy or JVD. LUNGS: Breath sounds clear to auscultation bilaterally and equal. No wheezes rales or rhonchi. HEART: Regular rate and rhythm without murmurs, rubs or gallops. ABDOMEN: Soft, nontender, normoactive bowel sounds. No guarding, no rebound. No masses appreciated. BACK: No CVA tenderness, no spinal tenderness, step-offs or deformities EXTREMITIES: Normal range of motion, no pitting or edema. No clubbing or cyanosis. NEUROLOGICAL: Cranial nerves II through XII grossly intact. Normal speech, normal gait. 5/5 strength, normal movement in all extremities, normal sensation PSYCH: Depressed affect, lethargic . Answers all questions appropriately. Mildly slurred speech. SKIN: Warm, dry, normal turgor, no visible rashes or lesions. Source: Patient, EMS Exam Limitations: No limitations - Medical/Surgical History Hx Asthma: No Hx Chronic Respiratory Disease: No Hx Diabetes: No Hx Cardiac Disease: No Hx Renal Disease: No Hx Cirrhosis: No Hx Alcoholism: No Hx HIV/AIDS: No Hx Splenectomy or Spleen Trauma: No Other PMH: pmh: depression/anxiety, cutting, HTN, protein S deficiency clotting d/o,. psh: lipoma removal, umbilical hernia repair, IVC filters placed 01/2016 - Family History Significant Family History: No pertinent family hx - Social History Smoking Status: Current every day smoker Alcohol Use: Sober Drug Use: None Constitutional: Initial Vital Signs Temperature (C) 36.9 C 09/13/16 11:05 Heart Rate 68 09/13/16 11:05 Respiratory Rate 14 09/13/16 11:05 Blood Pressure 152/106 H 09/13/16 11:05 O2 Sat (%) 96 09/13/16 11:05 O2 Delivery Mode Room Air O2 (L/minute) 2 Allergies/Adverse Reactions: atenolol Allergy (Verified 09/10/16 15:54) doxycycline Allergy (Verified 09/10/16 15:54) lamotrigine [From Lamictal] Allergy (Verified 09/10/16 15:54) latex Allergy (Verified 09/10/16 15:54) Penicillins Allergy (Verified 09/10/16 15:54) Home Medications: Medication Instructions Recorded Enoxaparin [Lovenox 150mg (*)] 150 mg SC DAILY 08/31/16 clonIDINE [Catapres (*)] 0.1 mg PO BID 08/31/16 ALPRAZolam [Xanax 1 MG (*)] 1 mg PO Q4 PRN #20 tab 09/09/16 Cyanocobalamin [Vitamin B12 (*)] 100 mcg PO DAILY PRN #0 tab 09/09/16 Enoxaparin [Lovenox 150mg (*)] 150 mg SC DAILY #30 syr 09/09/16 Losartan Potassium [Cozaar 50 mg 100 mg PO DAILY #60 tab 09/09/16 (*)] Pantoprazole Sodium [Protonix 40mg 40 mg PO DAILY #30 tab 09/09/16 (*)] Venlafaxine HCl [Venlafaxine 75MG 150 mg PO HS #30 tab 09/09/16 (*)] Venlafaxine HCl [Venlafaxine 75MG 187.5 mg PO DAILY #30 tab 09/09/16 (*)] Ziprasidone HCl [Geodon 40MG (*)] 40 mg PO HS #30 cap 09/09/16 Ziprasidone HCl [Geodon 40MG (*)] 80 mg PO DAILY@1800 #30 cap 09/09/16 clonIDINE [Catapres (*)] 0.1 mg PO BID #60 tab 09/09/16 diphenhydrAMINE [Benadryl 25 MG 25 - 50 mg PO HS PRN #45 cap 09/09/16 (*)] Lorazepam [Ativan] 1 mg PO BID #7 tablet 09/11/16 Medical Decision Making - Diagnostics EKG Interpretation: An EKG obtained and was read and documented in trace view. Please see trace view for full reading and report. Sinus rhythm, no acute ischemic changes, no QT prolongation. A repeat EKG obtained and was read and documented in trace view. Please see trace view for full reading and report. Sinus rhythm, slightly increased QT compared to previous Imaging: Results: CT scan of the head was obtained. The results of the study are negative. The study was read by Dr. Noel Thomas. I viewed the images myself on the PACS system. ED Course/Re-evaluation: No spoke with poison Control who states that this is a large overdose in the patient will need to be monitored. Typical reactions are nausea vomiting and diarrhea as well as some lesson since slurred speech. Occasionally extra pyramidal syndrome such as dystonia and akathisia. These would be treated with benzodiazepines, Cogentin or Benadryl. Also occasionally EKG abnormalities such as widened QRS or QT syndrome. These be treated with IV fluids, magnesium and phosphorus if needed. She does recommend we add on LFTs and a 4 hour Tylenol level. We have moved the patient to a trauma room under close observation. Currently his vital signs are stable. 11:40 a.m. the patient is asleep but easily arousable. He is answering questions appropriately. No movement disorders. Monitor in sinus rhythm and regular. He is hypertensive at 160/100. 12:30 a.m. the patient remained stable. I discussed his case with Maribeth Rosado who accepted for Dr. Turner. He is on a M1 hold. Differential Diagnosis: Partial list of the Differential diagnosis considered include but were not limited to; overdose, suicidal ideation, schizoaffective and although unlikely based on the history and physical exam, I also considered head injury hemorrhage , assault. Critical Care Time: I spent a total of 55 minutes of critical care time in obtaining history, performing a physical exam, bedside monitoring of interventions, collecting and interpreting tests and discussion with consultants but not including time spent performing procedures. - Data Points Laboratory Results: Laboratory Results 09/13/16 10:52 09/13/16 10:52 09/13/16 09/13/16 11:09 10:52 WBC 8.27 10^3/uL (3.80-9.50) RBC 4.98 10^6/uL (4.40-6.38) Hgb 15.1 g/dL (13.7-17.5) Hct 44.1 % (40.0-51.0) MCV 88.6 fL (81.5-99.8) MCH 30.3 pg (27.9-34.1) MCHC 34.2 g/dL (32.4-36.7) RDW 13.0 % (11.5-15.2) Plt Count 293 10^3/uL (150-400) MPV 10.2 fL (8.7-11.7) Neut % (Auto) 73.4 % (39.3-74.2) Lymph % (Auto) 17.0 % (15.0-45.0) [place] % (Auto) 7.9 % (4.5-13.0) Eos % (Auto) 0.6 % (0.6-7.6) Baso % (Auto) 0.7 % (0.3-1.7) Nucleat RBC Rel Count 0.0 % (0.0-0.2) Absolute Neuts (auto) 6.07 10^3/uL (1.70-6.50) Absolute Lymphs (auto) 1.41 10^3/uL (1.00-3.00) Absolute Monos (auto) 0.65 10^3/uL (0.30-0.80) Absolute Eos (auto) 0.05 10^3/uL (0.03-0.40) Absolute Basos (auto) 0.06 10^3/uL (0.02-0.10) Absolute Nucleated RBC 0.00 10^3/uL (0-0.01) Immature Gran % 0.4 % (0.0-1.1) Immature Gran # 0.03 10^3/uL (0.00-0.10) PT 12.7 SEC (12.0-15.0) INR 0.96 (0.83-1.16) APTT 26.5 SEC (23.0-38.0) Sodium 141 mEq/L (134-144) Potassium 4.3 mEq/L (3.5-5.2) Chloride 105 mEq/L (97-110) Carbon Dioxide 26 mEq/l (22-31) Anion Gap 10 mEq/L (8-16) BUN 11 mg/dL (7-23) Creatinine 1.0 mg/dL (0.7-1.3) Estimated GFR > 60 Glucose 95 mg/dL (70-100) Calcium 9.7 mg/dL (8.5-10.4) Phosphorus 2.8 mg/dL (2.5-4.5) Magnesium 1.7 mg/dL (1.6-2.3) Total Bilirubin 0.9 mg/dL (0.1-1.4) Conjugated Bilirubin 0.3 mg/dL (0.0-0.5) Unconjugated Bilirubin 0.6 mg/dL (0.0-1.1) AST 42 IU/L (17-59) ALT 64 IU/L (21-72) Alkaline Phosphatase 69 IU/L (38-126) Total Protein 7.1 g/dL (6.3-8.2) Albumin 4.1 g/dL (3.5-5.0) Salicylates < 1.0 L mg/dL (2.0-20.0) Acetaminophen < 10 L mcg/mL (10.0-30.0) Ethyl Alcohol < 10 mg/dL (0-10) Departure - Departure Disposition: [facility] Inpatient Acute Clinical Impression: Suicidal ideation Overdose Qualifiers: Encounter type: initial encounter Injury intent: intentional self-harm Qualifier Code: (T50.902A) Poisoning by unspecified drugs, medicaments and biological substances, intentional self-harm, initial encounter Condition: Critical
[2016-09-13 11:18] LABS: % IMMATURE GRANULYOCYTES 0.4 % (0.0-1.1); ABSOLUTE IMMATURE GRANULOCYTES 0.03 10^3/uL (0.00-0.10); ADD DIFF? NO; ADD MORPH? NO; ADD SCAN? NO; ATYPICAL LYMPHOCYTE FLAG 0 (0-99); FRAGMENT RBC FLAG 0 (0-99); HEMATOCRIT 44.1 % (40.0-51.0); HEMOGLOBIN 15.1 g/dL (13.7-17.5); LEFT SHIFT FLG 0 (0-99); LIPEMIA HEMOLYSIS FLAG 90 (0-99); MEAN CELL HEMOGLOBIN 30.3 pg (27.9-34.1); MEAN CELL HEMOGLOBIN CONCENTR. 34.2 g/dL (32.4-36.7); MEAN CELL VOLUME 88.6 fL (81.5-99.8); MEAN PLATELET VOLUME 10.2 fL (8.7-11.7); PLATELET CLUMPS FLAG 0 (0-99); PLATELET COUNT 293 10^3/uL (150-400); RED BLOOD CELL COUNT 4.98 10^6/uL (4.40-6.38)
[2016-09-13 11:23] LABS: ANION GAP 10 mEq/L (8-16); CALCIUM 9.7 mg/dL (8.5-10.4); CARBON DIOXIDE 26 mEq/l (22-31); CHLORIDE 105 mEq/L (97-110); ETHANOL SERUM < 10 mg/dL (0-10); GLOMERULAR FILTRATION RATE > 60; GLUCOSE 95 mg/dL (70-100); POTASSIUM 4.3 mEq/L (3.5-5.2); SALICYLATE < 1.0 mg/dL (2.0-20.0); SODIUM 141 mEq/L (134-144)
[2016-09-13 11:32] LABS: APTT 26.5 SEC (23.0-38.0); INR 0.96 (0.83-1.16); PROTIME(PATIENT) 12.7 SEC (12.0-15.0)
--- NOTE | 2016-09-13 11:44 | CT ---
CT Head (Without Contrast) 09/13/2016 11:26 Indication: Trauma. Altered mental status. Clotting disorder. COMPARISON: September 10, 2016. Technique: Standard noncontrast head CT protocol utilizing 5 mm thick collimated slices and field of view 23 cm. Dose reduction techniques were utilized. Findings: The brain is normally developed. No intracranial hemorrhage, mass lesion, swelling, or ex traaxial fluid collection. The ventricles are normal caliber and midline. The gusman-white matter has n ormal attenuation. The bones are unremarkable. The paranasal sinuses are clear. Impression: Normal. Comment: Case was discussed with Dr. Alfonso Gillis September 13, 2016 at 1138 hours. .
[2016-09-13 11:55] LABS: ALBUMIN 4.1 g/dL (3.5-5.0); TOTAL PROTEIN 7.1 g/dL (6.3-8.2)
[2016-09-13 11:56] LABS: ALANINE AMINOTRANSFERASE 64 IU/L (21-72); ALKALINE PHOSPHATASE 69 IU/L (38-126); ASPARTATE AMINOTRANSFERASE 42 IU/L (17-59); BILIRUBIN,TOTAL 0.9 mg/dL (0.1-1.4); BILIRUBIN-CONJUGATED 0.3 mg/dL (0.0-0.5); BILIRUBIN-UNCONJUGATED 0.6 mg/dL (0.0-1.1); MAGNESIUM 1.7 mg/dL (1.6-2.3)
--- NOTE | 2016-09-13 13:04 | CPEKG ---
Heart Rate: 72 RR Interval: 833 P-R Interval: 156 QRSD Interval: 94 QT Interval: 428 QTC Interval: 469 P [place]: 59 QRS [place]: 9 T Wave [place]: 7 EKG Severity - BORDERLINE ECG - EKG Impression: SINUS RHYTHM EKG Impression: PROBABLE LEFT ATRIAL ABNORMALITY EKG Impression: Slightly increased QTC compared to previous Electronically Signed By: Alfonso Gillis 13-Sep-2016 13:09:29
[2016-09-13] MEDS ORDERED: ONDANSETRON 4 MG/2 ML VIAL IVP PRN (14:56)
[2016-09-13] MEDS ORDERED: ONDANSETRON DISINTEGRATING 4 MG TAB PO PRN (14:56)
[2016-09-13] MEDS ORDERED: ACETAMINOPHEN 325 MG TAB PO PRN (14:56)
[2016-09-13] MEDS ORDERED: NS 1,000 ML IV SCH (15:00)
[2016-09-13] MEDS ORDERED: ALPRAZolam 1 MG TAB PO PRN (17:20)
--- NOTE | 2016-09-13 18:24 | GHP ---
[f rep st] HISTORY AND PHYSICAL DATE OF ADMISSION: 09/13/2016 CHIEF COMPLAINT: Overdose. HISTORY OF PRESENT ILLNESS: History is obtained mostly from chart as patient is fairly obtunded curr ently. This is a 50-year-old male with a history of schizoaffective disorder. He overdosed on Geodo n this morning. He called his family and friends to tell them he took 120 tablets of 40 mg dose of G eodon. Apparently this was his 9th suicide attempt. In the emergency department he denied any co-in gestants. He was just recently discharged from [address] [place] [address]. REVIEW OF SYSTEMS: Limited review of systems obtained secondary to patient being lethargic. PAST MEDICAL HISTORY: 1. Schizoaffective disorder. 2. Depression anxiety. 3. Protein S deficiency on Lovenox. 4. IVC filter placed 01/2016. MEDICATIONS: Reviewed. SOCIAL HISTORY: He does smoke every day. No alcohol. FAMILY HISTORY: Unable to be obtained. PHYSICAL EXAM: VITAL SIGNS: Afebrile, blood pressure is 158/87, heart rate is 70, oxygen saturation 98% on 2 L. GENERAL: The patient is well developed, no apparent distress. HEENT: Nonicteric scle leo. Extraocular muscles intact. Slightly dry mucous membranes. NECK: Supple. No thyromegaly. L UNGS: Poor effort, clear to auscultation bilaterally. CARDIOVASCULAR: Regular rate and rhythm. No murmurs, gallops. ABDOMEN: Positive bowel sounds, soft, nontender, nondistended. No hepatosplenom egaly. EXTREMITIES: No clubbing, cyanosis, or edema. SKIN: Without rash. NEURO: Does awaken to stimuli and answers some questions. He is moving all 4 extremities equally but is quite lethargic. LABS: CBC, coags, chemistry, acetaminophen, salicylate and ethyl alcohol all negative. ASSESSMENT: This is a 50-year-old male presenting with Geodon overdose. PLAN: 1. Geodon overdose. Per poison control patient should be monitored for cardiac arrhythmias overnigh t. We will do that and most likely he will be medically cleared for psych evaluation tomorrow. 2. History of protein S deficiency. We will continue with Lovenox. /[id number]/MODL
[2016-09-13 23:39] VITALS: TEMP 98.6
[2016-09-14 03:12] VITALS: O2SAT 98
[2016-09-14 06:22] LABS: % IMMATURE GRANULYOCYTES 0.3 % (0.0-1.1); ABSOLUTE IMMATURE GRANULOCYTES 0.03 10^3/uL (0.00-0.10); ADD DIFF? NO; ADD MORPH? NO; ADD SCAN? NO; ATYPICAL LYMPHOCYTE FLAG 0 (0-99); FRAGMENT RBC FLAG 0 (0-99); HEMATOCRIT 41.1 % (40.0-51.0); HEMOGLOBIN 13.7 g/dL (13.7-17.5); LEFT SHIFT FLG 0 (0-99); LIPEMIA HEMOLYSIS FLAG 80 (0-99); MEAN CELL HEMOGLOBIN 30.1 pg (27.9-34.1); MEAN CELL HEMOGLOBIN CONCENTR. 33.3 g/dL (32.4-36.7); MEAN CELL VOLUME 90.3 fL (81.5-99.8); MEAN PLATELET VOLUME 9.8 fL (8.7-11.7); PLATELET CLUMPS FLAG 20 (0-99); PLATELET COUNT 218 10^3/uL (150-400); RED BLOOD CELL COUNT 4.55 10^6/uL (4.40-6.38)
[2016-09-14 06:26] VITALS: PULSE 68; RESP 15
[2016-09-14 06:39] LABS: ALANINE AMINOTRANSFERASE 53 IU/L (21-72); ALBUMIN 3.1 g/dL (3.5-5.0); ALKALINE PHOSPHATASE 59 IU/L (38-126); ANION GAP 7 mEq/L (8-16); ASPARTATE AMINOTRANSFERASE 23 IU/L (17-59); BILIRUBIN,TOTAL 0.7 mg/dL (0.1-1.4); CALCIUM 8.6 mg/dL (8.5-10.4); CARBON DIOXIDE 26 mEq/l (22-31); CHLORIDE 111 mEq/L (97-110); CREATININE 0.8 mg/dL (0.7-1.3); GLOMERULAR FILTRATION RATE > 60; GLUCOSE 92 mg/dL (70-100); MAGNESIUM 1.7 mg/dL (1.6-2.3); SODIUM 144 mEq/L (134-144); TOTAL PROTEIN 5.6 g/dL (6.3-8.2)
--- NOTE | 2016-09-14 08:39 | CPEKG ---
Heart Rate: 68 RR Interval: 882 P-R Interval: 160 QRSD Interval: 94 QT Interval: 404 QTC Interval: 430 P [place]: 55 QRS [place]: 11 T Wave [place]: 17 EKG Severity - BORDERLINE ECG - EKG Impression: SINUS RHYTHM EKG Impression: PROBABLE LEFT ATRIAL ABNORMALITY Electronically Signed By: Phu Handy 14-Sep-2016 15:05:59
[2016-09-14] MEDS ORDERED: PANTOPRAZOLE SODIUM 40 MG TAB PO SCH (09:00)
[2016-09-14] MEDS ORDERED: ENOXAPARIN 150 MG/ML SYR SC SCH ×2 (09:00)
[2016-09-14] MEDS ORDERED: LOSARTAN POTASSIUM 50 MG TAB PO SCH (09:00)
[2016-09-14] MEDS ORDERED: VENLAFAXINE HCL 75 MG TAB PO SCH (09:00)
--- NOTE | 2016-09-14 09:03 | HOSPPROG ---
Hospitalist Progress Note Assessment/Plan: * Intentional overdose of Geodon * EKG personally reviewed interpreted this morning shows no acute QT abnormalities., liver function tests are normal. * Patient is medically cleared to be transferred to psychiatric facility * schizoaffective disorder /depression/ suicide attempt * recently admitted to [facility] * will get Behavioral Health to assess Subjective: No new complaints. Does say that he would try to commit suicide again if he was let out. Says that he lied to the psychiatrist at [facility] instead he did not have a plan. Objective: Vital Signs Temp Pulse Resp BP Pulse Ox 37.0 C 68 15 170/99 H 98 09/14/16 00:00 09/14/16 06:00 09/14/16 06:00 09/14/16 07:22 09/14/16 06:00 Laboratory Results 09/14/16 06:13 09/14/16 06:13 09/13/16 09/14/16 09/15/16 05:59 05:59 05:59 Intake Total 2713 Output Total 3050 950 Balance -337 -950 PT 12.7 SEC (12.0-15.0) 09/13/16 11:09 INR 0.96 (0.83-1.16) 09/13/16 11:09 - Physical Exam Constitutional: no apparent distress, appears nourished, not in pain Eyes: anicteric sclera, EOMI Ears, Nose, Mouth, Throat: moist mucous membranes Cardiovascular: regular rate and rhythym Respiratory: no respiratory distress Neurologic: AAOx3 Psychiatric: depressed, flat affect ICD10 Worksheet Patient Problems: Problems Problem Status Diagnosed Overdose Acute Suicidal ideation Acute Severe major depression Acute
[2016-09-14 09:23] VITALS: BP 153/91
== END 2016-09-14 11:56 | DRG 918 ==
LOC: EDUNIT# → EEVIPCON 12:30 → F2N 14:31 → INTOOBSV 14:56 → OBSVTOIN 14:56 → F2N 16:07 → UNDODISIN 09-14 11:56 → BBEH 09-14 12:39 → F2N 09-14 12:39
PROVIDERS: ADMIT Internal Medicine; ATTEND Internal Medicine
DX: T43.502A Poisoning by unspecified antipsychotics and neuroleptics, intentional self-harm, initial encounter (principal); D68.59 Other primary thrombophilia; F25.9 Schizoaffective disorder, unspecified; I10 Essential (primary) hypertension; Z72.0 Tobacco use; Z88.0 Allergy status to penicillin
CPT/HCPCS: G0480

== ENCOUNTER 2016-09-14 12:20 | Inpatient (IN) | payer OTHER ==
[2016-09-14] MEDS ORDERED: OLANZapine DISINTEGR 10 MG TAB PO PRN (13:21)
[2016-09-14] MEDS ORDERED: LORazepam 0.5 MG TAB PO PRN (13:21)
[2016-09-14] MEDS ORDERED: ACETAMINOPHEN 325 MG TAB PO PRN (13:21)
[2016-09-14] MEDS ORDERED: MAGNESIUM HYDROXIDE 30 ML UDCUP PO PRN (13:21)
[2016-09-14] MEDS ORDERED: MAG HYDROX/AL HYDROX/SIMETH 30 ML UDCUP PO PRN (13:21)
[2016-09-14] MEDS: NICOTINE POLACRILEX 2 MG GUM B PRN ×3 (14:49→17:33)
[2016-09-14] MEDS ORDERED: ONDANSETRON DISINTEGRATING 4 MG TAB PO PRN (15:27)
[2016-09-14] MEDS ORDERED: ONDANSETRON 4 MG/2 ML VIAL IV PRN (15:27)
[2016-09-14] MEDS: ALPRAZolam 1 MG TAB PO PRN ×2 (17:35→21:52)
[2016-09-15] MEDS: VENLAFAXINE HCL 75 MG TAB PO SCH (08:14)
[2016-09-15] MEDS: PANTOPRAZOLE SODIUM 40 MG TAB PO SCH (08:16)
[2016-09-15] MEDS: NICOTINE POLACRILEX 2 MG GUM B PRN ×8 (08:19→20:20)
[2016-09-15] MEDS: ENOXAPARIN 150 MG/ML SYR SC SCH (08:20)
[2016-09-15] MEDS: LOSARTAN POTASSIUM 50 MG TAB PO SCH (08:20)
[2016-09-15] MEDS: ALPRAZolam 1 MG TAB PO PRN ×4 (08:25→20:20)
[2016-09-15] MEDS ORDERED: diphenhydrAMINE 50 MG CAP PO PRN (10:39)
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
[2016-09-15] MEDS: amLODIPine BESYLATE 5 MG TAB PO SCH (20:20)
[2016-09-15] MEDS: QUEtiapine FUMARATE 50 MG TAB PO SCH (20:20)
[2016-09-16] MEDS: NICOTINE POLACRILEX 2 MG GUM B PRN ×8 (08:29→20:33)
[2016-09-16] MEDS: VENLAFAXINE HCL 75 MG TAB PO SCH (08:29)
[2016-09-16] MEDS: LOSARTAN POTASSIUM 50 MG TAB PO SCH (08:31)
[2016-09-16] MEDS: ALPRAZolam 1 MG TAB PO PRN ×4 (08:31→20:33)
[2016-09-16] MEDS: PANTOPRAZOLE SODIUM 40 MG TAB PO SCH (08:31)
[2016-09-16] MEDS: ENOXAPARIN 150 MG/ML SYR SC SCH (08:31)
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
[2016-09-16] MEDS: QUEtiapine FUMARATE 50 MG TAB PO SCH (20:33)
[2016-09-16] MEDS: amLODIPine BESYLATE 5 MG TAB PO SCH (20:33)
[2016-09-17] MEDS: QUEtiapine FUMARATE 50 MG TAB PO PRN (02:30)
[2016-09-17] MEDS: ALPRAZolam 1 MG TAB PO PRN ×5 (02:30→20:54)
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
[2016-09-17] MEDS: LOSARTAN POTASSIUM 50 MG TAB PO SCH (08:31)
[2016-09-17] MEDS: PANTOPRAZOLE SODIUM 40 MG TAB PO SCH (08:32)
[2016-09-17] MEDS: NICOTINE POLACRILEX 2 MG GUM B PRN ×7 (08:32→20:54)
[2016-09-17] MEDS: VENLAFAXINE HCL 75 MG TAB PO SCH (08:33)
[2016-09-17] MEDS: ENOXAPARIN 150 MG/ML SYR SC SCH (08:51)
[2016-09-17] MEDS: QUEtiapine FUMARATE 50 MG TAB PO SCH (20:54)
[2016-09-17] MEDS: amLODIPine BESYLATE 5 MG TAB PO SCH (20:55)
[2016-09-18] MEDS: ALPRAZolam 1 MG TAB PO PRN ×4 (02:16→20:58)
[2016-09-18] MEDS: LOSARTAN POTASSIUM 50 MG TAB PO SCH (08:45)
[2016-09-18] MEDS: NICOTINE POLACRILEX 2 MG GUM B PRN ×8 (08:46→20:58)
[2016-09-18] MEDS: PANTOPRAZOLE SODIUM 40 MG TAB PO SCH (08:46)
[2016-09-18] MEDS: VENLAFAXINE HCL 75 MG TAB PO SCH (08:46)
[2016-09-18] MEDS: ENOXAPARIN 150 MG/ML SYR SC SCH (08:47)
--- NOTE | 2016-09-18 10:40 | SOAPPROG ---
SOAP Progress Note Assessment/Plan: Assessment: Pt is a 50 y/o DIv C male with Schizoaffective D/O-depressed type who has a hx of previous suicide attempts who was D/C'd from [facility] and came back a week later after he took an OD of Geodon. He was supposed to get on a plane back to [place] where he has all of his supports, but was in the ED with a "panic attack." He continues to endorse SI and c/o feeling as though he cannot trust anyone. Plan:Risperdal consta 50mg IM on 09/20/16 pt is vol 09/18/16 10:35 Subjective: "So-so. I have trust issues." Objective: Vital Signs Temp Pulse Resp BP Pulse Ox 36.7 C 55 L 14 159/91 H 98 09/18/16 08:00 09/18/16 08:00 09/18/16 08:00 09/18/16 08:46 09/18/16 08:00 Pt is A+O x4 mood-depressed affect-appr chronic AH of female voice reciting Bible verses thoughts-logical speech-wnl no VH +SI 05/06 but contracts for safety no HI memory-intact conc-fair no SOFIE no delusions sleep-interrupted good appetite I/J-fair - Time Spent With Patient Time Spent With Patient: 30' - Pending Discharge Pending Discharge Within 24 Hours: No Pending Discharge Within 48 Hours: No ICD10 Worksheet Patient Problems: Problems Problem Status Diagnosed Overdose Acute Severe major depression Acute Suicidal ideation Acute
[2016-09-18] MEDS: QUEtiapine FUMARATE 50 MG TAB PO SCH (20:58)
[2016-09-18] MEDS: amLODIPine BESYLATE 5 MG TAB PO SCH (21:00)
[2016-09-19] MEDS: ALPRAZolam 1 MG TAB PO PRN ×4 (08:13→20:14)
[2016-09-19] MEDS: ENOXAPARIN 150 MG/ML SYR SC SCH (08:31)
[2016-09-19] MEDS: PANTOPRAZOLE SODIUM 40 MG TAB PO SCH (08:32)
[2016-09-19] MEDS: LOSARTAN POTASSIUM 50 MG TAB PO SCH (08:32)
[2016-09-19] MEDS: VENLAFAXINE HCL 75 MG TAB PO SCH (08:33)
[2016-09-19] MEDS: NICOTINE POLACRILEX 2 MG GUM B PRN ×7 (08:35→20:56)
--- NOTE | 2016-09-19 11:13 | SOAPPROG ---
SOAP Progress Note Assessment/Plan: Assessment: Pt is a 50 y/o DIv C male with Schizoaffective D/O-depressed type who has a hx of previous suicide attempts who was D/C'd from [facility] and came back a week later after he took an OD of Geodon. He was supposed to get on a plane back to [place] where he has all of his supports, but was in the ED with a "panic attack." He continues to endorse SI and c/o feeling as though he cannot trust anyone. Pt states he has so much anger at the people who wronged and took that anger turned that anger inward. Plan:Risperdal consta 50mg IM on 09/20/16 pt is vol plan is for pt to return to [place] where there are much more services and pt' s psychiatrist is located-he has out of state medicare and if seen at [facility] he would have to pay full rate 09/19/16 11:11 Subjective: "I slept better last night." Objective: Vital Signs Temp Pulse Resp BP Pulse Ox 36.6 C 63 16 124/86 H 98 09/19/16 09:01 09/19/16 09:01 09/19/16 09:01 09/19/16 09:01 09/19/16 09:01 Pt is A+O x4 mood-"angry" affect-broad denies A/V H leydi has chronic AH of a female voice reciting Bible verses SI 05/06 but contracts for safety no HI thoughts-logical speech-wnl sleep-improved last night appetite-very good energy level-wnl no formal delusions memory-wnl no SOFIE I/J-fair - Time Spent With Patient Time Spent With Patient: 30' - Pending Discharge Pending Discharge Within 24 Hours: No Pending Discharge Within 48 Hours: No ICD10 Worksheet Patient Problems: Problems Problem Status Diagnosed Overdose Acute Severe major depression Acute Suicidal ideation Acute
[2016-09-19] MEDS: QUEtiapine FUMARATE 50 MG TAB PO SCH (20:14)
[2016-09-19] MEDS: amLODIPine BESYLATE 5 MG TAB PO SCH (20:14)
[2016-09-20] MEDS ORDERED: risperiDONE MICROSPHERES 50 MG/2 ML SYR IM ONE (08:00)
[2016-09-20] MEDS: ENOXAPARIN 150 MG/ML SYR SC SCH (08:04)
[2016-09-20] MEDS: VENLAFAXINE HCL 75 MG TAB PO SCH (08:05)
[2016-09-20] MEDS: ALPRAZolam 1 MG TAB PO PRN ×4 (08:05→20:26)
[2016-09-20] MEDS: PANTOPRAZOLE SODIUM 40 MG TAB PO SCH (08:07)
[2016-09-20] MEDS: LOSARTAN POTASSIUM 50 MG TAB PO SCH (08:11)
[2016-09-20] MEDS: NICOTINE POLACRILEX 2 MG GUM B PRN ×8 (08:36→20:59)
--- NOTE | 2016-09-20 10:56 | SOAPPROG ---
SOAP Progress Note Assessment/Plan: Assessment: Pt is a 50 y/o DIv C male with Schizoaffective D/O-depressed type who has a hx of previous suicide attempts who was D/C'd from [facility] and came back a week later after he took an OD of Geodon. He was supposed to get on a plane back to [place] where he has all of his supports, but was in the ED with a "panic attack." He continues to endorse SI and c/o feeling as though he cannot trust anyone. Pt states he has so much anger at the people who wronged and took that anger turned that anger inward. Plan:Risperdal consta 50mg IM today pt is vol plan is for pt to return to [place] where there are much more services and pt' s psychiatrist is located-he has out of state medicare and if seen at [facility] he would have to pay full rate 09/20/16 10:53 Subjective: Pt reports feeling better today with decreased SI Objective: Vital Signs Temp Pulse Resp BP Pulse Ox 36.9 C 86 16 132/91 H 98 09/20/16 08:28 09/20/16 08:28 09/20/16 06:33 09/20/16 08:28 09/20/16 08:28 Pt is A+O x4 mood-"better" affect-appr vague SI no A/V H thoughts-logical speech-wnl sleep-fair good appetite and energy level memory/conc-wnl no sx of psychosis/taylor I/J-fair - Time Spent With Patient Time Spent With Patient: 30' - Pending Discharge Pending Discharge Within 24 Hours: No Pending Discharge Within 48 Hours: Yes Pending Discharge Date: 09/22/16 Pending Discharge Time: 11:00 ICD10 Worksheet Patient Problems: Problems Problem Status Diagnosed Overdose Acute Severe major depression Acute Suicidal ideation Acute
[2016-09-20] MEDS ORDERED: risperiDONE MICROSPHERES 50 MG/2 ML SYR IM SCH (15:30)
[2016-09-20] MEDS: QUEtiapine FUMARATE 50 MG TAB PO SCH (20:26)
[2016-09-20] MEDS: amLODIPine BESYLATE 5 MG TAB PO SCH (20:30)
[2016-09-21] MEDS: LOSARTAN POTASSIUM 50 MG TAB PO SCH (08:21)
[2016-09-21] MEDS: ENOXAPARIN 150 MG/ML SYR SC SCH (08:25)
[2016-09-21] MEDS: PANTOPRAZOLE SODIUM 40 MG TAB PO SCH (08:25)
[2016-09-21] MEDS: VENLAFAXINE HCL 75 MG TAB PO SCH (08:25)
[2016-09-21] MEDS: NICOTINE POLACRILEX 2 MG GUM B PRN ×9 (08:25→21:24)
[2016-09-21] MEDS: ALPRAZolam 1 MG TAB PO PRN ×3 (08:25→21:24)
--- NOTE | 2016-09-21 11:14 | SOAPPROG ---
SOAP Progress Note Assessment/Plan: Assessment: Pt is a 50 y/o DIv C male with Schizoaffective D/O-depressed type who has a hx of previous suicide attempts who was D/C'd from [facility] and came back a week later after he took an OD of Geodon. He was supposed to get on a plane back to [place] where he has all of his supports, but was in the ED with a "panic attack." He continues to endorse SI and c/o feeling as though he cannot trust anyone. Pt states he has so much anger at the people who wronged and took that anger turned that anger inward. Plan:Risperdal consta 50mg IM given 09/21/16 pt is vol plan is for pt to return to [place] where there are much more services and pt' s psychiatrist is located-he has out of state medicare and if seen at [facility] he would have to pay full rate D/C tomorrow 09/21/16 11:12 Subjective: "I'm ready to leave. I'm done with the suicidal stuff." Objective: Vital Signs Temp Pulse Resp BP Pulse Ox 36.7 C 74 16 134/86 H 97 09/21/16 08:30 09/21/16 08:30 09/21/16 08:30 09/21/16 08:30 09/21/16 08:30 Pt is A+O x4 mood-euthymic affect-appr no S/H I no A/V H thoughts-logical speech-wnl sleep-interrupted good appetite and energy level memory/conc-wnl no SOFIE no delusions I/J-good - Time Spent With Patient Time Spent With Patient: 30' - Pending Discharge Pending Discharge Within 24 Hours: Yes Pending Discharge Within 48 Hours: Yes Pending Discharge Date: 09/22/16 Pending Discharge Time: 11:00 ICD10 Worksheet Patient Problems: Problems Problem Status Diagnosed Overdose Acute Severe major depression Acute Suicidal ideation Acute
[2016-09-21] MEDS: QUEtiapine FUMARATE 50 MG TAB PO SCH (21:24)
[2016-09-21] MEDS: amLODIPine BESYLATE 5 MG TAB PO SCH (21:24)
[2016-09-22] MEDS: ALPRAZolam 1 MG TAB PO PRN ×2 (03:18→08:03)
[2016-09-22] MEDS: QUEtiapine FUMARATE 50 MG TAB PO PRN (03:19)
[2016-09-22] MEDS: PANTOPRAZOLE SODIUM 40 MG TAB PO SCH (08:23)
[2016-09-22] MEDS: LOSARTAN POTASSIUM 50 MG TAB PO SCH (08:23)
[2016-09-22] MEDS: VENLAFAXINE HCL 75 MG TAB PO SCH (08:24)
[2016-09-22] MEDS: ENOXAPARIN 150 MG/ML SYR SC SCH (08:25)
[2016-09-22] MEDS: NICOTINE POLACRILEX 2 MG GUM B PRN (08:25)
[2016-09-22 08:26] VITALS: BP 126/90
[2016-09-22 08:36] VITALS: PULSE 88; RESP 16; TEMP 98.1; O2SAT 99
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
== END 2016-09-22 11:28 | disposition home or self-care (01) | DRG 885 ==
LOC: BBEH 12:20
PROVIDERS: ADMIT Psychiatry & Neurology Psychiatry; ATTEND Psychiatry & Neurology Psychiatry
DX: F25.9 Schizoaffective disorder, unspecified (principal); F43.10 Post-traumatic stress disorder, unspecified; G47.00 Insomnia, unspecified; I10 Essential (primary) hypertension; G90.50 Complex regional pain syndrome I, unspecified; F12.20 Cannabis dependence, uncomplicated; Z87.820 Personal history of traumatic brain injury; Z59.0 Homelessness
CPT/HCPCS: J2794